=== PATIENT | male | born 1995 | race Caucasian/White ===

== ENCOUNTER 2017-02-27 23:49 | Emergency (ER) | payer OTHER ==
[~2017-02-27] VITALS: Ht 170.2 cm; Wt 73.0 kg
[~2017-02-27 23:49] MED LIST: MIRT15TA PO; RIS1 PO
[2017-02-28 00:27] VITALS: Ht 170.2 cm; Wt 73.0 kg
[2017-02-28] MEDS ORDERED: LORAZEPAM 1 MG TAB PO ONE (04:00)
--- NOTE | 2017-02-28 04:51 | ERD ---
ER Documentation Chief Complaint Date/Time DATE: 02/28/17 TIME: 04:51 Chief Complaint nervous and insomnia x 3 days. Denies pain at this time HPI This is a 21-year-old male who is sedated but had insomnia for 3 days. He says he feels nervous. Denies suicidal or homicidal ideation. Denies auditory or visual hallucinations. ROS All systems reviewed and are negative except as per history of present illness. Medications Home Meds Discontinued Scripts Risperidone* (Risperdal*) 1 Mg Tablet, 1 MG PO BID, #60 TAB Prov:FRANSISCOJOYALPHONSO Rina. DO 07/01/16 Mirtazapine* (Remeron*) 15 Mg Tablet, 15 MG PO HS, #30 TAB Prov:HARISHELIZATERENCEJOYSTADRIANOS A. DO 07/01/16 Allergies Allergies: Coded Allergies: No Known Allergy (Unverified , 02/28/17) PMhx/Soc History of Surgery: No Anesthesia Reaction: No Hx Neurological Disorder: No Hx Respiratory Disorders: No Hx Cardiac Disorders: No Hx Psychiatric Problems: No Hx Miscellaneous Medical Probl: Yes (hepatitis, unknown) Hx Alcohol Use: Yes (ON OCCASSION ) Hx Substance Use: Yes (EXSTASY, MARIJUANA, cocaine) Hx Tobacco Use: Yes Smoking Status: Current every day smoker Physical Exam Vitals Vital Signs Date Time Temp Pulse Resp B/P Pulse Ox O2 Delivery O2 Flow Rate FiO2 02/28/17 00:27 98.5 60 18 141/89 97 Physical Exam Const: [] Head: Atraumatic Eyes: Normal Conjunctiva ENT: Normal External Ears, Nose and Mouth. Neck: Full range of motion..~ No meningismus. Resp: Clear to auscultation bilaterally Cardio: Regular rate and rhythm, no murmurs Abd: Soft, non tender, non distended. Normal bowel sounds Skin: No petechiae or rashes Back: No midline or flank tenderness Ext: No cyanosis, or edema Neur: Awake and alert Psych: Normal Mood and Affect Results 24 hrs Current Medications Medications (Trade) Dose Ordered Sig/Zee Route PRN Reason Start Time Stop Time Status Last Admin Dose Admin Lorazepam (Ativan) 2 mg ONCE ONCE PO 02/28/17 04:00 02/28/17 04:01 DC 02/28/17 03:54 Procedures/MDM Medical decision-making: A 23 mg for anxiety. At this point clinically stable. Treated with Ativan with good response. Patient be discharged home. Departure Diagnosis: Primary Impression: Anxiety Condition: Stable KAILEE BEGUM Feb 28, 2017 04:51
[2017-02-28] MEDS ORDERED: LORA1TAB PO (04:52)
[2017-02-28 05:06] VITALS: BP 147/83; PULSE 69; RESP 18
== END 2017-02-28 05:07 | disposition home or self-care (01) ==
LOC: E/R 23:49
DX: F41.9 Anxiety disorder, unspecified (principal); F17.210 Nicotine dependence, cigarettes, uncomplicated
CPT/HCPCS: Z7502; Z7610; 99283